=== PATIENT | female | born 1995 | race African-American/Black ===

== ENCOUNTER 2017-09-28 20:33 | Emergency (ER) | payer BC, OTHER ==
[~2017-09-28] VITALS: Ht 180.3 cm; Wt 79.2 kg
[2017-09-28 20:40] VITALS: TEMP 36.9; Ht 180.3 cm; Wt 79.2 kg
[2017-09-28] MEDS ORDERED: SODIUM CHLORIDE 0.9% 1000ML 1,000 ML IV STA ×2 (20:56→22:13)
[2017-09-28] MEDS ORDERED: KETOROLAC TROMETHAMINE 30 MG/ML VIAL IV STA (20:56)
[2017-09-28] MEDS ORDERED: ACET-1256 PO (21:00)
[2017-09-28] MEDS ORDERED: IBUP-1050 PO (21:00)
[2017-09-28 21:23] LABS: BASO % 0.5 %; BASO ABS # 0.04 K/uL (0-0.2); EOS % 0.9 %; EOS ABS # 0.07 K/uL (0-0.5); HEMATOCRIT 40.3 % (37-47); HEMOGLOBIN 13.3 g/dL (12.0-16.0); IG# 0.02 K/uL (0.00-0.02); LYMPH % 29.7 %; LYMPH ABS # 2.23 K/uL (1.2-3.4); MEAN CELL VOLUME 79.8 fL (80-100); MEAN CORPUSCULAR HEMOGLOBIN 26.3 pg (25-34); MEAN PLATELET VOLUME 12.2 fL (7.4-10.4); MONO % 6.1 %; MONO ABS # 0.46 K/uL (0.11-0.59); NEUT % 62.5 %; NEUT ABS # 4.68 K/uL (1.4-6.5); PLATELET COUNT 276 K/uL (130-400); RED CELL DISTRIBUTION WIDTH CV 14.5 % (11.5-14.5); RED CELL DISTRIBUTION WIDTH SD 41.9 fL (36.4-46.3)
--- NOTE | 2017-09-28 21:31 | EMERGENCY ROOM VISIT NOTE ---
History Report prepared by Joe: Trista Thompson Under the Supervision of: Dr. Ricky Olguin M.D. First contact with patient: 20:47 Chief Complaint: ABDOMINAL PAIN Stated Complaint: PAIN IN LOWER R ABDOMINAL/PELVIC AREA Nursing Triage Summary: RLQ pain that started 3 mos ago, "I thought it had to do with ovulation, but it's been worse the past two weeks. I get nauseated, but not enough to vomit." Denies vaginal discharge or bleeding. Seen at [facility] today and was told it is probably a cyst. States was to have an US tomorrow, pain is worse now. History of Present Illness The patient is a 22 year old female who presents to the Emergency Room with complaints of worsening RLQ abdominal pain starting 2 weeks ago. She has had this pain intermittently for the past 3 month. It usually occurs between her periods. The pain has been more persistent for the past 2 weeks and worsened today. She went to [facility] where she had an unremarkable pelvic exam. She came to the ED because they were unable to schedule her for an ultrasound today. She has been taking Tylenol to no significant relief. She does not identify anything that worsens or relieves her pain. She denies any urinary symptoms, vaginal bleeding or discharge, nausea, vomiting, change in bowel movement, fever , chills, back pain, or leg pain/swelling. She denies any strain or injury. Her last period started 4 days ago. She denies any chance of . She has not had any ovarian problems in the past. She has not had any surgeries. She denies any medical problems. Source of History: patient Onset: 2 weeks ago Position: abdomen (RLQ) Quality: other (pain) Timing: worsening Modifying Factors (Worsening): other (none) Modifying Factors (Relieving): other (none) Associated Symptoms: No fevers, No chills, No nausea, No vomiting, No back pain, No urinary symptoms Note: Pt denies vaginal bleeding/discharge, leg swelling/pain, change in bowel movement. Review of Systems See HPI for pertinent positives & negatives. A total of 10 systems reviewed and were otherwise negative. Past Medical & Surgical No previous surgeries. Old medical records were reviewed. Nurse's notes were reviewed and I agree with. Family History No pertinent family history stated. Social History Smoking Status: Never Smoker Alcohol Use: occasionally Occupation Status: [employer] student Current/Historical Medications Scheduled Acetaminophen (Tylenol), 1,500 MG PO BID Scheduled PRN Ibuprofen (Advil), 600 MG PO TID PRN for Pain Allergies Coded Allergies: No Known Allergies (Unverified , 09/28/17) Physical Exam Vital Signs Date Time Temp Pulse Resp B/P (MAP) Pulse Ox O2 Delivery O2 Flow Rate FiO2 09/28/17 22:38 79 18 136/74 97 Room Air 09/28/17 20:40 36.9 72 18 140/96 97 Room Air Physical Exam General: Non-ill appearing young female in no acute distress. HEENT: Normal cephalic atraumatic. Pupils are equal round and reactive to light. Extraocular movements are intact. Oropharynx is pink with moist mucous membranes. No swelling of the mouth lips or tongue. Neck: Supple with a midline trachea. No meningeal signs or stiffness, no JVD or bruits. No Stridor. Chest: Clear to auscultation bilaterally. No wheezes or rhonchi. No increased work of breathing. Heart: regular rate and rhythm. Abdomen: Soft, minimal tenderness in the RLQ, nondistended without rebound guarding or rigidity. Extremities: No cyanosis clubbing or edema. No calf tenderness or assymetry Spine/Back. Non tender to palpation. No CVA tenderness Skin: Good turgor without rashes. Neurologic exam: Cranial nerves two through 12 are intact. Motor and sensation are intact and symmetrical throughout. Medical Decision & Procedures Laboratory Results 09/28/17 21:07 Red Blood Count 5.05, Mean Corpuscular Volume 79.8, Mean Corpuscular Hemoglobin 26.3, Mean Corpuscular Hemoglobin Concent 33.0, Mean Platelet Volume 12.2, Neutrophils (%) (Auto) 62.5, Lymphocytes (%) (Auto) 29.7, Monocytes (%) (Auto) 6.1, Eosinophils (%) (Auto) 0.9, Basophils (%) (Auto) 0.5, Neutrophils # (Auto) 4.68, Lymphocytes # (Auto) 2.23, Monocytes # (Auto) 0.46, Eosinophils # (Auto) 0.07, Basophils # (Auto) 0.04 09/28/17 21:07 Test 09/28/17 21:07 09/28/17 21:08 White Blood Count 7.50 K/uL (4.8-10.8) Red Blood Count 5.05 M/uL (4.2-5.4) Hemoglobin 13.3 g/dL (12.0-16.0) Hematocrit 40.3 % (37-47) Mean Corpuscular Volume 79.8 fL (80-100) Mean Corpuscular Hemoglobin 26.3 pg (25-34) Mean Corpuscular Hemoglobin Concent 33.0 g/dl (32-36) Platelet Count 276 K/uL (130-400) Mean Platelet Volume 12.2 fL (7.4-10.4) Neutrophils (%) (Auto) 62.5 % Lymphocytes (%) (Auto) 29.7 % Monocytes (%) (Auto) 6.1 % Eosinophils (%) (Auto) 0.9 % Basophils (%) (Auto) 0.5 % Neutrophils # (Auto) 4.68 K/uL (1.4-6.5) Lymphocytes # (Auto) 2.23 K/uL (1.2-3.4) Monocytes # (Auto) 0.46 K/uL (0.11-0.59) Eosinophils # (Auto) 0.07 K/uL (0-0.5) Basophils # (Auto) 0.04 K/uL (0-0.2) RDW Standard Deviation 41.9 fL (36.4-46.3) RDW Coefficient of Variation 14.5 % (11.5-14.5) Immature Granulocyte % (Auto) 0.3 % Immature Granulocyte # (Auto) 0.02 K/uL (0.00-0.02) Anion Gap 8.0 mmol/L (3-11) Est Creatinine Clear Calc Drug Dose 101.6 ml/min Estimated GFR () 96.1 Estimated GFR (Non- 82.9 BUN/Creatinine Ratio 11.7 (10-20) Calcium Level 9.5 mg/dl (8.5-10.1) Total Bilirubin 0.4 mg/dl (0.2-1) Direct Bilirubin 0.1 mg/dl (0-0.2) Aspartate Amino Transf (AST/SGOT) 23 U/L (15-37) Alanine Aminotransferase (ALT/SGPT) 29 U/L (12-78) Alkaline Phosphatase 69 U/L (45-117) Total Protein 8.9 gm/dl (6.4-8.2) Albumin 4.4 gm/dl (3.4-5.0) Lipase 153 U/L (73-393) Human Chorionic Gonadotropin, Qual NEG (NEG) Urine Color YELLOW Urine Appearance CLEAR (CLEAR) Urine pH 6.5 (4.5-7.5) Urine Specific [place] 1.021 (1.000-1.030) Urine Protein NEG (NEG) Urine Glucose (UA) NEG (NEG) Urine Ketones 1+ (NEG) Urine Occult Blood NEG (NEG) Urine Nitrite NEG (NEG) Urine Bilirubin NEG (NEG) Urine Urobilinogen NEG (NEG) Urine Leukocyte Esterase NEG (NEG) Laboratory studies as stated above per my review. Medications Administered Medications (Trade) Dose Ordered Sig/Steve Route Start Time Stop Time Status Last Admin Dose Admin Sodium Chloride 1,000 ml @ 999 mls/hr Q1H1M STAT IV 09/28/17 20:56 09/28/17 21:56 DC 09/28/17 21:11 999 MLS/HR Ketorolac Tromethamine (Toradol Inj) 30 mg NOW STAT IV 09/28/17 20:56 09/28/17 20:58 DC 09/28/17 21:11 30 MG Sodium Chloride 1,000 ml @ 999 mls/hr Q1H1M STAT IV 09/28/17 22:13 09/28/17 23:13 09/28/17 22:15 999 MLS/HR ED Course 2047: Past medical records reviewed. The patient was evaluated in room B11B, and a complete history and physical examination were performed. 2055: Toradol Inj 30 mg IV, NSS 1000 ml @ 999 mls/hr IV. 2212: NSS 1000 ml @ 999 mls/hr IV. 2299: Signed out at shift change to Dr. Acharya. Medical Decision Differentials include, but are not limited to; ovarian cyst, ovarian torsion, UTI, , appendicitis. This patient comes in as described above. She was placed in room B 11. She has been having right lower quadrant abdominal pain for several months now. She is seen at [facility] today and had a pelvic exam which she tells me was normal. She is scheduled for ultrasound tomorrow. She was concerned that the pain got worse tonight. She appears in no distress and has no significant tenderness on exam. I do not suspect appendicitis. I did order ultrasound to get done tonight. IV access established and she was given IV Toradol as well as blood work was obtained and ultrasound and urinalysis. She was reassessed frequently. She has remained stable and is feeling well. She has no white count or fever to suggest infection. She has no acute electrolyte or metabolic abnormalities. is negative. Her initial attempt ultrasound showed her bladder was undistended and the center back over she was hydrated with another liter of IV normal saline fluid and some back for further ultrasound. She will be signed out to Dr. Acharya at shift change who will follow-up on the ultrasound. I suspect she will likely be able to be discharged home with NSAIDs pending the ultrasound report. Medication Reconcilliation Current Medication List: was personally reviewed by me Blood Pressure Screening Patient's blood pressure: Elevated blood pressure Blood pressure disposition: Elevated BP felt to be situational Impression Primary Impression: Right lower quadrant abdominal pain Scribe Attestation The scribe's documentation has been prepared under my direction and personally reviewed by me in its entirety. I confirm that the note above accurately reflects all work, treatment, procedures, and medical decision making performed by me. Departure Information Dispostion Home / Self-Care Referrals No Doctor, Assigned (PCP) Forms HOME CARE DOCUMENTATION FORM, IMPORTANT VISIT INFORMATION Patient Instructions My [facility] Additional Instructions Rest. Return if: Increasing pain, worsening of symptoms, fever or chills, any new problems or concerns Use ibuprofen 400 mg every 6 hours as needed for pain. Take with food Follow-up with the [facility] in the next couple days for recheck or return to ER if symptoms worsen
[2017-09-28 21:42] LABS: ALBUMIN 4.4 gm/dl (3.4-5.0); CALCIUM 9.5 mg/dl (8.5-10.1); CREATININE 0.97 mg/dl (0.60-1.20); POTASSIUM 3.6 mmol/L (3.5-5.1)
[2017-09-28 21:45] LABS: TOTAL PROTEIN 8.9 gm/dl (6.4-8.2)
--- NOTE | 2017-09-29 00:30 | EMERGENCY ROOM VISIT NOTE ---
ED Visit Note First contact with patient: 00:05 I received this patient in signout from Dr. Olguin at the change of shift. Ultrasound of the pelvis was performed and is read as below Per STAT RAD: Assuming a negative test. The uterus is unremarkable. No adnexal lesions or torsion. Trace fluid in the pelvis. On my reevaluation the patient, she stated that her pain had been increasing. Evaluation of the right lower quadrant reveals some tenderness however there is no rebound or guarding. After some discussion with the patient regarding the risks and benefits of a CAT scan, she elected to speak with her parents. They wish to have the CAT scan performed. A CT scan with IV and oral contrast was ordered. CT ABDOMEN AND PELVIS PER statrad: Lower thorax is unremarkable. Liver, gallbladder, spleen, pancreas, and adrenal glands are unremarkable. Kidneys, ureters, and urinary bladder are unremarkable. Uterus and adnexa are unremarkable. Appendix is unremarkable. Bowel is unremarkable. Trace free fluid in the pelvis. No acute osseous abnormality. Radiologist: Landry Martines MD The above findings were discussed with the patient. She was feeling well enough for discharge. She was advised to start the oral contraceptive pills that were prescribed by her [facility] earlier in the month. I suspect she perhaps has an underlying endometriosis or chronic pelvic pain. She was referred back to [facility] for further management. She will return to the ER for worsening of symptoms or any medical concerns.
[2017-09-29] MEDS ORDERED: OPTIRAY 320 IV PRN (01:15)
[2017-09-29 03:29] VITALS: BP 132/80; PULSE 77; O2SAT 99
--- NOTE | 2017-09-29 07:07 | DIAGNOSTIC IMAGING REPORT ---
CT ABD/PELVIS IV AND ORAL CONT CLINICAL HISTORY: Lower pelvic pain. COMPARISON STUDY: None. TECHNIQUE: Following the IV administration of 92 mL of Optiray-320, CT scan of the abdomen and pelvis was performed from the lung bases to the proximal femurs. Images are reviewed in the axial, sagittal, and coronal planes. IV contrast was administered without complication. A dose lowering technique was utilized adhering to the principles of ALARA. CT DOSE: 1455.24 mGycm FINDINGS: Lower chest: The heart is normal in size and configuration, without pericardial effusion. The lung bases and pleural spaces are clear. Liver: The contrast-enhanced liver is normal in size, contour, and attenuation. There is no intrahepatic biliary ductal dilatation. The hepatic veins and portal veins are patent. Gallbladder: Unremarkable. Spleen: Normal in size and attenuation. Pancreas: Unremarkable. Adrenal glands: Unremarkable. Kidneys: There is symmetric renal cortical enhancement. The kidneys are normal in size without hydronephrosis. Bowel: There are no transition zones indicate bowel obstruction. There is no evidence of acute diverticulitis. The appendix is felt to be normal. Peritoneum: There is no free air. There is trace free pelvic fluid likely physiologic. Vasculature: The abdominal aorta is normal in course and caliber. Adenopathy: There are mildly prominent ileocolic lymph nodes, likely reactive. Pelvic viscera: The bladder, and pelvic viscera are unremarkable. Skeletal structures: No destructive osseous lesions are seen. IMPRESSION: 1. No acute intra-abdominal or pelvic findings. 2. No evidence of bowel obstruction. No evidence of free air 3. No evidence of acute appendicitis. No evidence of diverticulitis. Electronically signed by: Aly Hennessy M.D. 09/29/2017 7:06 AM Dictated Date/Time: 09/29/2017 7:04 AM
--- NOTE | 2017-09-29 07:18 | DIAGNOSTIC IMAGING REPORT ---
EXAMINATION: PELVIC ULTRASOUND (transabdominal only) CLINICAL HISTORY: Pelvic pain COMPARISON STUDY: None FINDINGS: The uterus measured 71 x 31 x 38 mm. The endometrial stripe measured 5 mm. The right ovary measured 45 x 21 x 23 mm. The left ovary measured 26 x 15 x 29 mm. There is no ultrasonographic evidence of ovarian torsion. It should be noted that ovarian torsion can be present with normal Doppler ultrasonographic findings. There is trace free fluid in the pelvis, likely physiologic. The patient refused endovaginal scanning. IMPRESSION: Normal transabdominal pelvic ultrasound. Electronically signed by: Aly Hennessy M.D. 09/29/2017 7:17 AM Dictated Date/Time: 09/29/2017 7:16 AM
== END 2017-09-29 03:55 | disposition home or self-care (01) ==
LOC: C.EDB 20:35
DX: R10.31 Right lower quadrant pain (principal)